=== PATIENT | male | born 1965 | race Caucasian/White ===

== ENCOUNTER 2021-06-30 15:38 | Emergency (ER) | payer OTHER ==
[~2021-06-30] VITALS: Ht 182.9 cm; Wt 136.1 kg
[2021-06-30 15:51] VITALS: BP 146/77
--- NOTE | 2021-06-30 16:43 | NUR ---
PT TAKEN TO XRAY VIA W/C
--- NOTE | 2021-06-30 17:04 | NUR ---
BIB WHEELCHAIR TO ER BED 7
--- NOTE | 2021-06-30 17:08 | NUR ---
XRAY AT BEDSIDE
--- NOTE | 2021-06-30 17:31 | NUR ---
55/M BIB SELF FROM URGENT CARE, REFERRED FROM URGENT CARE FOR RIGHT ANKLE PAIN AND SWELLING S/P "TWISTING" HIS ANKLE X5 DAYS AGO. DENIES TAKING MEDS FOR PAIN, PATIENT AMBULATORY. NKA OR PMH
--- NOTE | 2021-06-30 17:36 | NUR ---
55/M REFERRED FROM URGENT CARE FOR RIGHT ANKLE PAIN AND SWELLING S/P "TWISTING" HIS ANKLE X5 DAYS AGO. DENIES TAKING MEDS FOR PAIN, PATIENT AMBULATORY UPON ARRIVAL TO ED.
--- NOTE | 2021-06-30 18:27 | NUR ---
5 AND 4 INCH ORTHOGLASS USED TO APPLY POSTERIOR SHORT LEG SPLINT WITH STIRRUP. PMSC'S ASSESSED AND NICK VALDEZ ASSESSED SPLINT S/P PLACEMENT.
[2021-06-30] MEDS ORDERED: IBUP-2213 PO (18:32)
[2021-06-30 18:40] VITALS: BP 177/94
--- NOTE | 2021-06-30 18:43 | NUR ---
Patient discharged with v/s stable. Written and verbal after care instructions given and explained. Patient alert, oriented and verbalized understanding of instructions. Ambulatory with steady gait. All questions addressed prior to discharge. ID band removed. Patient advised to follow up with PMD. Rx of IBUPROFEN given. Opportunity to ask questions provided and answered.
--- NOTE | 2021-06-30 18:46 | NUR ---
The patient's care was reviewed and supervised by Edda Cuello RN.
== END 2021-06-30 18:40 | disposition home or self-care (01) ==
LOC: MED 15:38
DX: S82.831A Other fracture of upper and lower end of right fibula, initial encounter for closed fracture (principal); S82.891A Other fracture of right lower leg, initial encounter for closed fracture; I10 Essential (primary) hypertension; Z79.899 Other long term (current) drug therapy; X50.1XXA Overexertion from prolonged static or awkward postures, initial encounter; Y93.89 Activity, other specified; Y92.89 Other specified places as the place of occurrence of the external cause; Y99.8 Other external cause status
CPT/HCPCS: 29515; 73590; 73610; 99284

== ENCOUNTER 2022-07-08 16:06 | Emergency (ER) | payer OTHER ==
[~2022-07-08] VITALS: Ht 182.9 cm; Wt 139.3 kg
[~2022-07-08 16:06] MED LIST: IBUP-2213 PO
[2022-07-08 16:10] VITALS: BP 144/74
--- NOTE | 2022-07-08 16:23 | NUR ---
pt to bed 5, ambulatory and steady gait, urine sample collected, taken to lab
--- NOTE | 2022-07-08 16:23 | NUR ---
AMBULATED TO BED 5 WITH STEADY GAIT
[2022-07-08 16:30] LABS: APPEARANCE,URINE CLOUDY (CLEAR); BILIRUBIN,URINE NEGATIVE (NEGATIVE); BLOOD, URINE 3+ (NEGATIVE); COLOR,URINE BROWN (YELLOW); LEUKOCYTE ESTERASE ,URINE 2+ (NEGATIVE); NITRITE, URINE POSITIVE (NEGATIVE); PH,URINE 5.5 (5.0-9.0); UGLUCOSE NEGATIVE (NEGATIVE)
[2022-07-08 16:38] LABS: RBC,URINE 11-20 (MOD) /HPF (0-5); WBC,URINE 20-60 /HPF (0-5)
[2022-07-08] MEDS ORDERED: CEFP200T20 PO (17:00)
[2022-07-08] MEDS ORDERED: cefTRIAXone 500 MG in LIDOCAINE MPF 1% 1 ML IM ONE (17:00)
[2022-07-08] MEDS ORDERED: LIDOCAINE MPF 1% 5 ML ONE (17:02)
[2022-07-08] MEDS ORDERED: cefTRIAXone 500 MG VIAL ONE (17:02)
[2022-07-08 17:27] VITALS: BP 149/79
--- NOTE | 2022-07-08 17:27 | NUR ---
Patient discharged with v/s stable. Written and verbal after care instructions given. Patient alert, oriented and verbalized understanding of instructions. Ambulatory with steady gait. All questions addressed prior to discharge. ID band removed. Patient advised to follow up with PMD. Rx of Cefpodoxime Proxetil given. Opportunity to ask questions provided and answered.
--- NOTE | 2022-07-08 19:05 | NUR ---
The patient's care was reviewed and supervised by Yane aMck RN, RN.
== END 2022-07-08 17:27 | disposition home or self-care (01) ==
LOC: MED 16:06
DX: N39.0 Urinary tract infection, site not specified (principal); E11.9 Type 2 diabetes mellitus without complications; I10 Essential (primary) hypertension; Z79.899 Other long term (current) drug therapy; Z98.890 Other specified postprocedural states
CPT/HCPCS: 81001; 87086; 87491; 96372; 99283; J0696; J2001

== ENCOUNTER 2022-10-09 08:44 | Day surgery (SDC) | payer OTHER ==
[~2022-10-09] VITALS: Ht 182.9 cm; Wt 138.3 kg
[~2022-10-09 08:44] MED LIST changes: +CEFP200T20 PO
[2022-10-09] MEDS ORDERED: fentaNYL citrate 0.05 MG/ML VIAL ONE (09:18)
[2022-10-09] MEDS ORDERED: diphenhydrAMINE 50 MG/ML VIAL ONE (09:18)
[2022-10-09] MEDS ORDERED: MIDAZOLAM 5 MG/5 ML VIAL ONE (09:19)
[2022-10-09] MEDS ORDERED: LIDOCAINE 2% 100 MG/5 ML UJET TP ONE (09:19)
[2022-10-09] MEDS ORDERED: fentaNYL citrate 0.05 MG/ML VIAL IVP ONE (12:55)
[2022-10-09] MEDS ORDERED: MIDAZOLAM 5 MG/5 ML VIAL IV ONE (12:55)
[2022-10-09] MEDS ORDERED: diphenhydrAMINE 50 MG/ML VIAL IVP ONE (12:55)
== END 2022-10-09 11:15 | disposition home or self-care (01) ==
LOC: MDS 08:44 → MMU 08:45 → MDS 11:15
PROVIDERS: ATTEND Internal Medicine Gastroenterology
DX: Z12.11 Encounter for screening for malignant neoplasm of colon (principal); D12.2 Benign neoplasm of ascending colon; D12.4 Benign neoplasm of descending colon; I10 Essential (primary) hypertension; K21.9 Gastro-esophageal reflux disease without esophagitis; E78.00 Pure hypercholesterolemia, unspecified; E11.9 Type 2 diabetes mellitus without complications; Z79.84 Long term (current) use of oral hypoglycemic drugs; Z79.899 Other long term (current) drug therapy
CPT/HCPCS: 45385; J1200; J2250; J3010; 82948; 88305

== ENCOUNTER 2023-01-03 15:01 | Emergency (ER) | payer OTHER ==
[~2023-01-03] VITALS: Ht 182.9 cm; Wt 136.6 kg
[2023-01-03 15:32] VITALS: BP 161/91; PULSE 74; RESP 20; TEMP 98.1; O2SAT 96
[2023-01-03 16:51] LABS: FLU A ANTIGEN negative (NEGATIVE); FLU B ANTIGEN NEGATIVE (NEGATIVE)
[2023-01-03 18:00] LABS: APPEARANCE,URINE CLEAR (CLEAR); BILIRUBIN,URINE NEGATIVE (NEGATIVE); BLOOD, URINE 3+ (NEGATIVE); COLOR,URINE YELLOW (YELLOW); LEUKOCYTE ESTERASE ,URINE NEGATIVE (NEGATIVE); NITRITE, URINE NEGATIVE (NEGATIVE); PROTEIN,URINE TRACE (NEGATIVE); UGLUCOSE NEGATIVE (NEGATIVE); UROBILINOGEN,URINE >=8.0 EU/dL (0.2 - 1)
[2023-01-03 18:08] LABS: BACTERIA,URINE OCCASSIONAL /HPF (None Seen); RBC,URINE 50-80 /HPF (0-5); SQUAMOUS EPITHELIAL CELL,UR 4-10 (MOD) /LPF (0-3 (FEW)); WBC,URINE 0-5 /HPF (0-5)
[2023-01-03 19:04] LABS: BASOPHILS % (AUTO) 0.3 % (0.0-2.0); EOSINOPHILS # (AUTO) 0.1 K/uL (0-0.4); EOSINOPHILS % (AUTO) 1.9 % (0.0-4.0); HEMATOCRIT 38.8 % (36-52); HEMOGLOBIN 13.1 g/dL (12.0-18.0); LYMPHOCYTES # (AUTO) 1.5 K/uL (2.0-11.5); LYMPHOCYTES % (AUTO) 21.8 % (20.5-51.1); MEAN CORPUSCULAR HEMOGLOBIN 30 pg (27-31); MEAN CORPUSCULAR HGB CONC 34 g/dL (33-37); MONOCYTES # (AUTO) 0.9 K/uL (0.8-1.0); MONOCYTES % (AUTO) 13.1 % (1.7-9.3); NEUTROPHILS # (AUTO) 4.3 K/uL (1.8-7.7); NEUTROPHILS % (AUTO) 62.9 % (42.2-75.2); PLATELET COUNT (AUTO) 230 K/uL (140-450); RED BLOOD CELL COUNT(AUTO) 4.32 MIL/uL (4.20-6.10); RED CELL DISTRIBUTION WIDTH 13.9 % (11.6-13.7); WHITE BLOOD COUNT (AUTO) 6.9 K/uL (4.8-10.8)
[2023-01-03 19:32] LABS: ALBUMIN 3.3 g/dL (3.4-5.0); CALCIUM 8.4 mg/dL (8.5-10.1); CARBON DIOXIDE 30.3 mmol/L (21-32); CREATININE 1.1 mg/dL (0.6-1.3); POTASSIUM 4.3 mmol/L (3.5-5.1); TOTAL BILIRUBIN 0.6 mg/dL (0.0-1.0); TOTAL PROTEIN, SERUM 7.4 g/dL (6.4-8.2)
[2023-01-03] MEDS ORDERED: ACET-10509 PO (20:15)
[2023-01-03] MEDS ORDERED: CIPR500T4 PO (20:15)
[2023-01-03 20:31] VITALS: BP 149/88; PULSE 74; RESP 20; TEMP 98.1; O2SAT 99
== END 2023-01-03 20:31 | disposition home or self-care (01) ==
LOC: MED 15:01
DX: K80.20 Calculus of gallbladder without cholecystitis without obstruction (principal); Z20.822 Contact with and (suspected) exposure to COVID-19; R31.9 Hematuria, unspecified; R30.0 Dysuria; Z79.899 Other long term (current) drug therapy
CPT/HCPCS: 36415; 71046; 80053; 81001; 83690; 85025; 87086; 99284